=== PATIENT | male | born 1955 | race African-American/Black ===

== ENCOUNTER 2024-09-02 10:05 | Emergency (ER) | payer OTHER ==
[2024-09-02] MEDS ORDERED: Lidocaine 1% PF 5 ML VIAL ONE (10:40)
[2024-09-02] MEDS ORDERED: Bacitracin 1 PK ONE (12:02)
[2024-09-02] MEDS ORDERED: Boostrix 0.5 ML (Tdap) VIAL (>/=7 yrs of age) ONE (12:02)
== END 2024-09-02 13:35 | disposition home or self-care (01) ==
LOC: ERS 10:05
DX: S61.412A Laceration without foreign body of left hand, initial encounter (principal); B20 Human immunodeficiency virus [HIV] disease; I13.0 Hypertensive heart and chronic kidney disease with heart failure and stage 1 through stage 4 chronic kidney disease, or unspecified chronic kidney disease; I50.9 Heart failure, unspecified; N18.9 Chronic kidney disease, unspecified; I48.91 Unspecified atrial fibrillation; Z23 Encounter for immunization; W11.XXXA Fall on and from ladder, initial encounter; Y93.89 Activity, other specified; Y92.149 Unspecified place in prison as the place of occurrence of the external cause
CPT/HCPCS: 12004; 90471; 90715